=== PATIENT | female | born 1970 | race African-American/Black ===

== ENCOUNTER 2017-11-18 04:24 | Emergency (ER) | payer MEDICAID ==
[~2017-11-18] VITALS: Ht 177.8 cm; Wt 99.8 kg
[~2017-11-18 04:24] MED LIST: BENTYL10 MG ORAL; HYDROCODON-ACE1 EA15 ORAL; NITROFURANTOIN100 M2 ORAL; NKM; NORCO 10-325 T1 EACH ORAL; NORCO 10/3251 EA ORAL; NORCO 5-325 TA1 EACH ORAL; PERCOCET 10-321 EAC1 PO
[2017-11-18] MEDS ORDERED: FUROSEMIDE20 M1 ORAL (04:29)
[2017-11-18] MEDS ORDERED: BACTRIM DS TAB1 EAC1 ORAL (04:29)
[2017-11-18] MEDS ORDERED: IBUPROFEN600 MG ORAL (04:29)
--- NOTE | 2017-11-18 04:29 | Emergency Room Report ---
History of Present Illness General Chief Complaint: Edema Source: Patient, EMS Present Illness HPI Is a 47-year-old female with history of cocaine abuse and chronic hip dislocation. She also has a history of chronic pain. She presents with chief complaint of swelling to the lower extremity is been ongoing for over a week. Pain is 10 out of 10. Generalize in nature. No fever chills but no nausea no vomiting. Denies any other complaint. She called 911 because of the pain. Allergies: Coded Allergies: NO KNOWN ALLERGIES (Unverified Allergy, Unknown, 03/17/15) Patient History Past Medical History: see triage record, old chart reviewed Past Surgical History: other Pertinent Family History: none Social History: Reports: smoking, alcohol use, drug use Last Menstrual Period: unk Now: No Immunizations: other Reviewed Nursing Documentation: PMH: Agreed; PSxH: Agreed Nursing Documentation-PMH Past Medical History: No History, Except For Hx Cardiac Problems: Yes Hx Hypertension: Yes Hx Pacemaker: No Hx Asthma: Yes Hx Diabetes: Yes Hx Cancer: No Hx Gastrointestinal Problems: No Hx Dialysis: No History Of Psychiatric Problem: Yes Hx Neurological Problems: Yes - skin graft on bilateral legs, chronic hip dislocation Hx Cerebrovascular Accident: No Hx Seizures: No Review of Systems Eye: Denies: eye pain, blurred vision ENT: Denies: ear pain, nose congestion, throat swelling Respiratory: Denies: cough, shortness of breath Cardiovascular: Denies: chest pain, palpitations Gastrointestinal: Denies: abdominal pain, diarrhea, nausea, vomiting Musculoskeletal: Reports: joint pain, muscle pain, muscle stiffness; Denies: back pain Skin: Denies: rash Neurological: Denies: headache, numbness Endocrine: Denies: increased thirst, increased urine Hematologic/Lymphatic: Denies: easy bruising All Other Systems: negative except mentioned in HPI Physical Exam Vital Signs Date Time Temp Pulse Resp B/P (MAP) Pulse Ox O2 Delivery O2 Flow Rate FiO2 11/18/17 04:19 98.7 95 16 150/93 100 Room Air 98.8 vitals with high blood pressure Sp02 EP Interpretation: reviewed, normal General Appearance: well appearing, no apparent distress, alert Head: normocephalic, atraumatic Eyes: bilateral eye PERRL, bilateral eye EOMI ENT: hearing grossly normal, normal pharynx Neck: full range of motion, supple, no meningismus Respiratory: chest non-tender, lungs clear, normal breath sounds Cardiovascular #1: regular rate, rhythm, no murmur Gastrointestinal: normal bowel sounds, non tender, no mass, no organomegaly, no bruit, non-distended Musculoskeletal: back normal, other - Lower extremity with 1+ edema. She does have skin grafts on both leg. She has ulcer to the lower extremity bilaterally. Neurologic: alert, oriented x3 Psychiatric: mood/affect normal Skin: warm/dry Medical Decision Making Diagnostic Impression: Primary Impression: Lymphedema of both lower extremities Additional Impressions: Ulcers of both lower extremities, limited to breakdown of skin Cocaine abuse ER Course Patient presents with increasing lymphedema. No evidence of any DVT bilaterally. No evidence of necrotizing fasciitis. She does have some mild ulcer and with her history of drug abuse and homelessness, we'll put on antibiotics to decrease risk of infection. We'll discharge home. Last Vital Signs Date Time Temp Pulse Resp B/P (MAP) Pulse Ox O2 Delivery O2 Flow Rate FiO2 11/18/17 04:19 98.7 95 16 150/93 100 Room Air 98.8 Status: improved Disposition: HOME, SELF-CARE Condition: Stable Scripts Ibuprofen* (MOTRIN*) 600 Mg Tablet 600 MG ORAL THREE TIMES A DAY, #30 TAB 0 Refills Prov: QASIM BOSWELL M.D. 11/18/17 Trimethoprim/Sulfamethoxazole 160/800* (BACTRIM DS TABLET*) 1 Each Tablet 1 TAB ORAL Q12H, #14 TAB 0 Refills Prov: QASIM BOSWELL M.D. 11/18/17 Furosemide* (LASIX*) 20 Mg Tablet 20 MG ORAL DAILY, #14 TAB Prov: QASIM BOSWELL M.D. 11/18/17 Patient Instructions: Peripheral Edema Additional Instructions: Follow-up with your doctor in a week. Stop using drugs. Return if symptom worsen. QASIM BOSWELL M.D. Nov 18, 2017 04:29
[2017-11-18 04:30] VITALS: BP 161/97
[2017-11-18] MEDS ORDERED: Bactrim-DS 1 tab ORAL ONE (04:30)
[2017-11-18] MEDS ORDERED: Norco 5mg/325mg tab ORAL ONE (04:30)
[2017-11-18 05:25] VITALS: BP 127/77
== END 2017-11-18 05:25 | disposition home or self-care (01) ==
LOC: EDBD 04:24 → EMR 04:54
DX: I89.0 Lymphedema, not elsewhere classified (principal); L97.829 Non-pressure chronic ulcer of other part of left lower leg with unspecified severity; L97.819 Non-pressure chronic ulcer of other part of right lower leg with unspecified severity; F14.10 Cocaine abuse, uncomplicated; I10 Essential (primary) hypertension; E11.9 Type 2 diabetes mellitus without complications; J45.909 Unspecified asthma, uncomplicated
CPT/HCPCS: 99284